=== PATIENT | female | born 2000 | race Caucasian/White ===

== ENCOUNTER 2023-11-05 16:54 | Inpatient (IN) ==
--- NOTE | 2023-11-05 17:19 | Emergency Department Note ---
Impression & Plan Heart block, Syncope, Observed seizure-like activity ED Provider Note NAME: KYLIE GALEANA AGE: 23 SEX: F : 2000 ARRIVES VIA: Ambulance INFORMANT: Patient, EMS ED PROVIDER(S): Howard Mesa DO CHIEF COMPLAINT: Syncope HPI: The patient is a 23-year-old female who presented to the emergency department for an evaluation of syncope. She was seen in our facility recently for a seizure. That episode appeared to be more classic for seizure with a postictal phase. The patient states that she was at rest and she did not feel well. Her sister presented to the emergency room with her and states that she was sitting in a chair and she passed out. There is no definite reported seizure activity. There was no nausea or vomiting. The patient does complain of a slight headache at this time but denies having any neck stiffness or trauma. The patient does not have a history of any recent tickborne illnesses. She has a family history of sudden cardiac . ROS: See above HPI for pertinent positives & negatives. A total of 10 systems reviewed and were otherwise negative. PAST MEDICAL HISTORY: See Below PAST SURGICAL HISTORY: See Below FAMILY HISTORY: See Below SOCIAL HISTORY: See Below HOME MEDICATIONS: See Below ALLERGIES: See Below VITALS: See Below PHYSICAL EXAMINATION: GENERAL: Patient is awake alert in no acute distress patient is resting comfortably and showing no signs of anxiety EYES: The conjunctivae are clear. The pupils are round and reactive. EARS, NOSE, MOUTH AND THROAT: The nose is without any evidence of any deformity. NECK: The neck is nontender and supple. RESPIRATORY: Normal respiratory effort is noted there is no evidence of wheezing rhonchi or rales CARDIOVASCULAR: Regular rate and rhythm noted there no murmurs rubs or gallops normal S1 normal S2. GASTROINTESTINAL: The abdomen is soft. Abdomen is nontender. MUSCULOSKELETAL/EXTREMITIES: There is no evidence of gross deformity full range of motion is noted in the hips and shoulders. SKIN: There is no obvious evidence of any rash. There are no petechiae, pallor or cyanosis noted. NEUROLOGIC: Patient is awake alert and oriented x3 strength is symmetric patellar reflexes are 2+ bilaterally MEDICAL DECISION MAKING: The patient is a 23-year-old female who presented to the emergency department for an evaluation after having a syncopal episode. The patient was seen in our facility this morning for a seizure. At that time her seizure did sound appropriate and the description involves a postictal phase. She returns emergency department tonight after having another episode but this sounds more like a syncopal episode. The prehospital personnel notified me that the patient had an episode of heart block as well. I reviewed the patient's rhythm strips prior to arrival. I discussed the patient's laboratory and radiographic studies with her. I also discussed the patient's condition with the on-call [facility] bonding machine operator as well as the on-call [facility] hospitalist. They have agreed to evaluate the patient for further management and disposition. The patient did have 1 episode of heart block while in the emergency department. This resolved spontaneously. The patient did have the transcutaneous pacemaker attached but it was not used during her time with me. Triage Nursing notes reviewed. Prior medical records reviewed Vital Signs: reviewed and remarkable for no significant abnormalities Differential diagnosis: Vasovagal event, dehydration, infection, hypoglycemia, electrolyte abnormalities, cardiac sources, intracerebral event, pulmonary embolism, seizure, toxicologic, neurologic, as well as other pathologies. ER treatment provided: See below Diagnostics interpreted by me: ECG: EKG was obtained in the emergency department. My interpretation is normal sinus rhythm at 80 bpm. There was no ectopy. There was no acute ST segment abnormalities noted. This was compared to a tracing from November 05, 2023 earlier this morning no changes were noted. Prehospital monitor strip was obtained and reviewed. My interpretation is sinus rhythm that shows some prolongation of the OR interval and the ultimately some dropped QRS complexes that could be consistent with a third-degree heart block. Cardiac Monitoring: An order was placed for continuous cardiac monitoring. The monitor shows a rate of 78 bpm with sinus rhythm. Laboratory studies: As stated above and show below. Imaging studies: See below. Radiographic imaging was reviewed by myself Consultation(s): I discussed this case with Dr Carrizales who was one call for cardiology I discussed this case with Dr Omalley who is on-call for the [facility] hospitalist group. Past Med/Surg History Problem List (Updated 11/05/23 @ 22:59 by Howard Mesa DO) Syncope (Acute) Heart block (Acute) High anion gap metabolic acidosis Observed seizure-like activity (Acute) Generalized seizure (Acute) New onset seizure (Acute) Social History Smoking Status: Never smoker Preferred Language: Divehi Feels Safe at Home: Yes Allergies Allergies Allergy/AdvReac Type Severity Reaction Status Date / Time No Known Allergies Allergy Unverified 11/05/23 18:48 Home Meds Home Medications Medication Instructions Recorded Confirmed No Known Home Medications 11/05/23 11/05/23 Results & Data (ED) Vital Signs Vital Signs - 24 hr 11/05/23 17:10 11/05/23 17:53 Pulse Rate 87 87 Respiratory Rate 18 Respiratory Effort / Characteristics Non-Labored Spontaneous Respiratory Depth Normal Respiratory Pattern Regular Blood Pressure 115/76 Blood Pressure Mean 89 Pulse Oximetry 100 Oxygen Delivery Method Room Air Sepsis Recent Fever Within 48 Hours No Sepsis New/Unexplained Change in Mental Status No Sepsis Action Taken by Nursing No Action Required Home Medications Current Medication List: was personally reviewed by me Laboratory Data Attestation: I reviewed the patient's lab results. 11/05/23 17:10 11/05/23 17:10 Lab Results 11/05/23 11/05/23 11/05/23 Range/Units 17:10 17:29 18:11 WBC 13.57 H (4.8-10.8) K/ul RBC 3.91 L (4.20-5.40) M/uL Hgb 10.3 L (12.0-16.0) g/dl Hct 32.9 L (37.0-47.0) % MCV 84.1 (80.0-100.0) fL MCH 26.3 (25.0-34.0) pg MCHC 31.3 L (32.0-36.0) g/dL RDW Std Deviation 46.2 (36.4-46.3) fL RDW Coeff of [place]dy 15.2 H (11.5-14.5) % Plt Count 363 (130-400) K/uL MPV 9.2 L (9.4-12.4) fL Immature Gran % (Auto) 0.3 % Neut % (Auto) 76.7 % Lymph % (Auto) 14.7 % [place] % (Auto) 7.6 % Eos % (Auto) 0.3 % Baso % (Auto) 0.4 % Neut # (Auto) 10.42 H (1.40-6.50) K/uL Lymph # (Auto) 1.99 (1.20-3.40) K/uL [place] # (Auto) 1.03 H (0.11-0.59) K/uL Eos # (Auto) 0.04 (0.00-0.50) K/uL Baso # (Auto) 0.05 (0.00-0.20) K/uL Immature Gran # (Auto) 0.04 (0.01-0.20) K/uL PT 10.9 (9.0-12.0) Seconds INR 1.0 (0.9-1.1) APTT 23 (21-31) Seconds PTT Ratio 0.9 Sodium 138 (136-145) mmol/L Potassium 3.6 (3.5-5.1) mmol/L Chloride 107 (98-107) mmol/L Carbon Dioxide 19 L (21-32) mmol/L Anion Gap 12 H (3-11) BUN 14 (6-23) mg/dl Creatinine 0.66 (0.6-1.2) mg/dl Est Cr Clr Drug Dosing 115.0 ml/min Est GFR ( Amer) 145.3 ml/min Est GFR (Non-Af Amer) 125.4 ml/min BUN/Creatinine Ratio 21.2 H (10-20) Glucose 92 (70-99(Fasting)) mg/dl Calcium 8.8 (8.6-10.3) mg/dl Magnesium 1.8 (1.7-2.4) mg/dl Total Bilirubin 0.3 (0.2-1.0) mg/dl AST 18 (13-39) U/L ALT 12 (7-52) U/L Alkaline Phosphatase 46 (34-104) U/L Troponin I High Sens < 2.3 (0-14) pg/ml Total Protein 6.7 (6.0-8.3) gm/dl Albumin 4.2 (3.4-5.0) gm/dl Globulin 2.5 (2.5-4.0) gm/dl Albumin/Globulin Ratio 1.7 (0.9-2) Procalcitonin < 0.02 (0-0.5) ng/ml TSH 1.449 (0.300-4.500) uIu/ml HCG, Qual Negative (Negative) Urine Color Yellow Urine Appearance Clear (Clear) Urine pH 6.5 (4.5-7.5) Ur Specific [place] 1.012 (1.000-1.030) Urine Protein Negative (Negative) Urine Glucose (UA) Negative (Negative) Urine Ketones Negative (Negative) Urine Blood Negative (Negative) Urine Nitrite Negative (Negative) Urine Bilirubin Negative (Negative) Urine Urobilinogen Negative (Negative) Ur Leukocyte Esterase 2+ H (Negative) Urine WBC (Auto) 11-20 H (0-5) /hpf Urine RBC (Auto) 0-2 (0-2) /hpf U Hyaline Cast (Auto) 0-2 (0-2) /lpf U Epithel Cells (Auto) 3-5 H (0-2) /hpf Urine Bacteria (Auto) None Seen (None Seen) Urine Opiates Screen Neg (Neg) Ur Methadone, Qual Neg (Neg) Urine Fentanyl Screen Neg (Neg) Urine Barbiturates Neg (Neg) Ur Phencyclidine (PCP) Neg (Neg) U Amphetamin/Meth Scrn Neg (Neg) MDMA (Ecstasy) Screen Neg (Neg) U Benzodiazepines Scrn Neg (Neg) Ur Cocaine Metabolite Neg (Neg) U Marijuana (THC) Screen Neg (Neg) Lyme Disease Screen Negative (Negative) SARS-CoV-2 (PCR) NEGATIVE (Negative) Influenza Type A (PCR) Negative (Neg) Influenza Type B (PCR) Negative (Neg) RSV (RT-PCR) Negative (Neg) Administered Medications Lactated Ringer's (Lr) 1,000 mls @ 100 mls/hr IV .Q10H YOLANDA Stop: 11/06/23 04:59 Last Admin: 11/05/23 19:09 Dose: 100 mls/hr Documented By: BÁRBARA Discontinued Medications Sodium Chloride (Nss) 1,000 mls @ 999 mls/hr IV .Q1H1M STA Stop: 11/05/23 18:05 Last Infusion: 11/05/23 18:41 Dose: Infused Documented By: Admin: 11/05/23 17:23 Dose: 999 mls/hr Documented By: PIERRE Magnesium Sulfate/Dextrose (Magnesium Sulfate / D5w) 1 gm in 100 mls @ 50 mls/hr IV Q2H YOLANDA Stop: 11/05/23 22:14 Last Infusion: 11/05/23 22:32 Dose: Infused Documented By: Admin: 11/05/23 20:21 Dose: 50 mls/hr Documented By: Infusion: 11/05/23 20:21 Dose: Infused Documented By: Admin: 11/05/23 18:37 Dose: 50 mls/hr Documented By: GRIS Levetiracetam (Levetiracetam 500 Mg/5 Ml Vial) 500 mg IV NOW STA Stop: 11/05/23 18:51 Last Admin: 11/05/23 19:07 Dose: 500 mg Documented By: BÁRBARA Potassium Chloride (Potassium Chloride Crtab 20 Meq Tabcr) 40 meq PO NOW STA Stop: 11/05/23 18:09 Last Admin: 11/05/23 18:37 Dose: 40 meq Documented By: GRIS Imaging Data Attestation: I personally reviewed and interpreted this imaging study as follows: My Impression: 1 view chest x-ray was obtained in the emergency department. My interpretation was no free air or definite infiltrate, final report below. Radiologist's Impression: Chest X-Ray 11/05/23 17:05 XR chest 1V portable HISTORY: 23 years-old Female Dysrhythmia COMPARISON: 01/22/2023 TECHNIQUE: AP view of the chest FINDINGS: The lungs are clear. Cardiac silhouette is normal in size. No pleural effusions. No pneumothorax. IMPRESSION: No acute process. ACT 112: Negative or not required by law. The above report was generated using voice recognition software. It may contain grammatical, syntax or spelling errors. Electronically signed by: Cruzito Short M.D. 11/05/2023 5:23 PM Discharge Plan Visit Data Chief Complaint: Seizure Stated Complaint: SYNCOPE ED Provider: Howard Mesa Discharge Problem: Heart block, Syncope, Observed seizure-like activity Patient Disposition: Admitted As Inpatient Discharge Instructions Interventions: ED Discharge Assessment Last Done: 11/05/23 20:15 Discharge Problem: Syncope Qualifiers: Syncope type: unspecified Qualified Code(s): R55 - Syncope and collapse
[2023-11-05] MEDS: SODIUM CHLORIDE 0.9% 1,000 ML IV STA (17:23)
--- NOTE | 2023-11-05 17:25 | XRay Report ---
XR chest 1V portable HISTORY: 23 years-old Female Dysrhythmia COMPARISON: 01/22/2023 TECHNIQUE: AP view of the chest FINDINGS: The lungs are clear. Cardiac silhouette is normal in size. No pleural effusions. No pneumothorax. IMPRESSION: No acute process. ACT 112: Negative or not required by law. The above report was generated using voice recognition software. It may contain grammatical, syntax o r spelling errors. Electronically signed by: Cruzito Short M.D. 11/05/2023 5:23 PM
[2023-11-05 17:30] LABS: Basophils # (auto) 0.05 K/uL (0.00-0.20); Basophils % (auto) 0.4 %; Eosinophils # (auto) 0.04 K/uL (0.00-0.50); Eosinophils % (auto) 0.3 %; Hematocrit (blood only) 32.9 % (37.0-47.0); Hemoglobin 10.3 g/dl (12.0-16.0); Immature Granulocytes # (auto) 0.04 K/uL (0.01-0.20); Immature Granulocytes % (auto) 0.3 %; Lymphocytes # (auto) 1.99 K/uL (1.20-3.40); Lymphocytes % (auto) 14.7 %; Mean Corpuscular Hemoglobin 26.3 pg (25.0-34.0); Mean Corpuscular Hgb Conc 31.3 g/dL (32.0-36.0); Mean Corpuscular Volume 84.1 fL (80.0-100.0); Mean Platelet Volume 9.2 fL (9.4-12.4); Monocytes # (auto) 1.03 K/uL (0.11-0.59); Monocytes % (auto) 7.6 %; Neutrophils # (auto) 10.42 K/uL (1.40-6.50); Neutrophils % (auto) 76.7 %; Platelet Count 363 K/uL (130-400); RDW Coefficient of Variation 15.2 % (11.5-14.5); RDW Standard Deviation 46.2 fL (36.4-46.3); Red Blood Count 3.91 M/uL (4.20-5.40); White Blood Count 13.57 K/ul (4.8-10.8)
[2023-11-05 17:40] LABS: Pregnancy Test, Serum Negative (Negative)
[2023-11-05 17:48] LABS: Alanine Aminotransferase 12 U/L (7-52); Albumin Globulin Ratio 1.7 (0.9-2); Albumin Level 4.2 gm/dl (3.4-5.0); Alkaline Phosphatase 46 U/L (34-104); Anion Gap 12 (3-11); Aspartate Aminotransferase 18 U/L (13-39); BUN Creatinine Ratio 21.2 (10-20); Bilirubin,Total 0.3 mg/dl (0.2-1.0); Blood Urea Nitrogen 14 mg/dl (6-23); Calcium 8.8 mg/dl (8.6-10.3); Carbon Dioxide 19 mmol/L (21-32); Chloride 107 mmol/L (98-107); Est GFR (African American) 145.3 ml/min; Est GFR (Non-African American) 125.4 ml/min; Globulin 2.5 gm/dl (2.5-4.0); Glucose 92 mg/dl (70-99(Fasting)); Magnesium 1.8 mg/dl (1.7-2.4); Potassium 3.6 mmol/L (3.5-5.1); Sodium 138 mmol/L (136-145); Total Protein 6.7 gm/dl (6.0-8.3)
[2023-11-05 17:53] LABS: Troponin I High Sensitivity < 2.3 pg/ml (0-14)
[2023-11-05 18:03] LABS: Thyroid Stimulating Hormone 1.449 uIu/ml (0.300-4.500)
[2023-11-05 18:04] LABS: Partial Thromboplastin Ratio 0.9; Partial Thromboplastin Time 23 Seconds (21-31); Prothrombin Time 10.9 Seconds (9.0-12.0)
[2023-11-05 18:13] LABS: Influenza A virus by PCR Negative (Neg); Influenza B virus by PCR Negative (Neg); RSV by PCR Negative (Neg); SARS CoV2 RNA(COVID-19) Ceph NEGATIVE (Negative)
--- NOTE | 2023-11-05 18:16 | History & Physical Report ---
Date of Service November 05, 2023 Assessment & Plan (1) Observed seizure-like activity: Plan: Admit to the PCU on telemetry and pulse oximetry Currently stable, nontoxic-appearing, without recurrent episode since arrival to the ED Patient has experienced 2 episodes which appeared to be seizure-like episodes witnessed by her sister, boyfriend, and other friends today Patient had tonic-clonic like activity, loss of consciousness, and likely postictal state Workup thus far has been essentially unremarkable negative CTA head and brain without contrast, stable EKGs, no sign of infection Spoke with cardiology regarding the episodes of dropped beats captured by EMS and route during her second ED visit, they are confident these are likely due to patient having seizure activity and do not feel at this time that seizures are cardiac in nature Patient had approximately 3 alcoholic drinks last night, denies tobacco use, vaping, recreational drug use Lyme screen is negative, no signs of meningitis, has remained afebrile After speaking with neurology will start patient on [place] milligrams IV Keppra twice daily with first dose at the time admission Will obtain MRI of the brain with seizure protocol, EEG, TTE Continue to monitor on telemetry Status post 1 L normal saline in the ED, will give LR at 100 mL/h x 1 bag overnight for ongoing hydration Cardiology and neurology consults have been placed Bilateral SCDs for DVT prophylaxis Regular diet AM CBC, CMP, mag, PT/INR (2) High anion gap metabolic acidosis: Plan: On arrival to the ED this afternoon the patient was noted to have an anion gap of 12 with bicarb of 19 Most likely due to her second seizure-like episode today dehydration Will obtain stat lactate and VBG for further evaluation Patient is stable and nontoxic-appearing at time of admission Status post 1 L normal saline on arrival, will give light IV hydration overnight with LR Continue to monitor on telemetry Plan The patient was discussed with Dr. Omalley at the time of the admission History of Present Illness Chief Complaint: Syncopal episode Primary Care Provider: [facility] Randa is a 23-year-old female with a past medical history significant for recurrent episodes of vasovagal/syncopal episodes who presented to the [facility] ED via EMS on 11/05/2023 for the second time in [facility] 12 hours this time for syncopal episode. The patient initially presented to our emergency department at approximately 0930 after her sister witnessed her having a seizure-like event while in bed. Patient's sister reported the patient was having tonic-clonic like activity and was foaming at the mouth. She remained stable while in the ED this a.m. Labs were essentially unremarkable, her UA did have 2+ leukocyte esterase and 2150 WBC but was otherwise negative. CT of the head and brain without contrast was read as negative for acute findings. The patient was discharged home after receiving 1 L NSS. Later this afternoon the patient was reportedly sitting in a chair when she reported to her sister that she was not feeling well then subsequently passed out. While in route EMS captured telemetry strip showing episodes of dropped QRS complexes. She remained stable after arrival to our ED this afternoon. Repeat labs were significant for a leukocytosis of 13 with neutrophil predo minance of 10, anion gap of 12 with bicarb of 19, COVID-19, influenza, RSV screens negative with Lyme disease screen in process. Repeat ECG obtained on ED arrival shows normal sinus rhythm without acute ST segment or T wave changes. The ED spoke with cardiology who recommended admission for further observation and telemetry monitoring. Prior to admission the patient was given 1 L NSS. Patient was sitting in bed in no acute distress at the time of the exam with her sister and boyfriend sitting bedside, history is obtained from both. They confirm the history this morning regarding the likely seizure. They state that after being discharged from the ER earlier today they walked to a friend's tailgate. The patient explains that all she did was sit in a chair and drink water as she was told that she needed to take it easy. She states that she initially felt fine then at 1 point suddenly felt as though the left side of her face was drooping. Her sister and her boyfriend and confirmed that the patient had drooping of the left side of the face and was less alert than normal. They were concerned that she was going to have another seizure so they laid her to the ground and placed her on her side. Patient had an episode of being less responsive during that time. She confirms that she had approximately 3 alcoholic drinks last night along with multiple cups of water as she has a history of vasovagal episodes if she drinks too much causing her to become sick and vomit. She states that she has also had episodes of syncope/vasovagal episodes when she has had GI bugs causing her to become dehydrated and vomit. She denies any tobacco use, vaping, or recreational drug use. Does not believe that she has had any recent tick bites or insect bites. Is not on prescription or [id number] medications, denies [id number]-babctvh supplements or workout supplements. Currently has a mild headache but otherwise feels fine. Please refer to Dr. Omalley's attestation for any changes to the treatment plan Allergies Allergy/AdvReac Type Severity Reaction Status Date / Time No Known Allergies Allergy Unverified 11/05/23 18:48 Home Medications Medication Instructions Recorded Confirmed Type No Known Home Medications 11/05/23 11/05/23 History ferrous sulfate 325 mg (65 mg 325 mg PO DAILY #30 tabs 11/06/23 Rx iron) tablet (Feosol) levetiracetam 500 mg tablet 500 mg PO BID 1 month #60 tabs 11/06/23 Rx (Keppra) sulfamethoxazole 800 1 tab PO Q12 5 days #10 tabs 11/06/23 Rx mg-trimethoprim 160 mg tablet (Bactrim DS) Past Med/Surg History Problem List (Updated 11/05/23 @ 22:59 by Howard Mesa DO) Syncope (Acute) Heart block (Acute) High anion gap metabolic acidosis Observed seizure-like activity (Acute) Generalized seizure (Acute) New onset seizure (Acute) Social History Smoking Status: Never smoker Hx Alcohol Use: Yes Alcohol type: hard liquor Hx Substance Use: No Preferred Language: Upper Sorbian Communication Ability: Effective Accounts Receivable Processor Required: No Beliefs That Will Affect Care: None Current Living Situation: Alone Current Living Situation Comment: Apartment building Other Information That Helps Us Care for You: No Feels Safe at Home: Yes Safety Concerns: Feels Safe At This Time Assistive Devices: None Physical Exam Physical Exam: Physical Exam: General: In no acute distress, stated age, well-nourished, good hygiene HEENT: Normocephalic, atraumatic, no scleral icterus, pupils around round, symmetrical, and reactive to light, moist mucus membranes, trachea midline, no thyromegaly Chest/Pulm: No respiratory distress, symmetrical chest expansion, clear breath sounds throughout Cardiac: RRR, no murmurs noted Abdomen: Negative for ascites and bruising, normoactive bowel sounds, soft, non-tender to palpation throughout Musculoskeletal: Symmetrical and without signs of acute trauma, upper and lower extremities with full ROM, no atrophy, spasticity, or flaccidity Extremities: Radial, dorsalis pedis, and posterior tibial pulses are intact and symmetrical, no edema noted in the BL LE's Skin: Warm, dry, no rashes , lesions, or scars noted Neuro: Alert and oriented to person, place, month, year, and president, no focal defects, CN II-XII tested and intact, finger to nose test negative, no tremors noted Psych: No acute distress, calm and cooperative during the exam Results & Data Results & Data Vital Signs (Past 12 Hours) Vital Signs Pulse Resp BP Pulse Ox O2 Del Method 11/05/23 17:53 87 11/05/23 17:10 87 18 115/76 100 Room Air Laboratory Results Abnormal lab results 11/05/23 11/05/23 Range/Units 17:10 18:11 WBC 13.57 H (4.8-10.8) K/ul RBC 3.91 L (4.20-5.40) M/uL Hgb 10.3 L (12.0-16.0) g/dl Hct 32.9 L (37.0-47.0) % MCHC 31.3 L (32.0-36.0) g/dL RDW Coeff of Magdy 15.2 H (11.5-14.5) % MPV 9.2 L (9.4-12.4) fL Neut # (Auto) 10.42 H (1.40-6.50) K/uL [place] # (Auto) 1.03 H (0.11-0.59) K/uL Carbon Dioxide 19 L (21-32) mmol/L Anion Gap 12 H (3-11) BUN/Creatinine Ratio 21.2 H (10-20) Ur Leukocyte Esterase 2+ H (Negative) Urine WBC (Auto) 11-20 H (0-5) /hpf U Epithel Cells (Auto) 3-5 H (0-2) /hpf Diagnostic Findings Chest X-Ray 11/05/23 17:05 XR chest 1V portable HISTORY: 23 years-old Female Dysrhythmia COMPARISON: 01/22/2023 TECHNIQUE: AP view of the chest FINDINGS: The lungs are clear. Cardiac silhouette is normal in size. No pleural effusions. No pneumothorax. IMPRESSION: No acute process. ACT 112: Negative or not required by law. The above report was generated using voice recognition software. It may contain grammatical, syntax or spelling errors. Electronically signed by: Cruzito Short M.D. 11/05/2023 5:23 PM ECG Additional Comments: Normal sinus rhythm without acute ST segment or T wave changes Code Status & VTE Plan Code Status Full code VTE Prophylaxis Plan VTE Prophylaxis will be ordered: Yes Supervising Physician Co-Signing Physician Notes I personally saw and examined the patient. I verified all hyatt points and agree with Migue Fernandez PA-C with the following exceptions and/or additions: 23 year old female presents to the ER with recurrent tonic clonic seizure episodes. Longstanding history of vasovagal syncope but no prior seizures. Seen earlier today with first seizure. Rhythm strip from ambulance with second degree type 2 heart block with maximum three dropped beats. She had both abnormal facial movements and appeared pale/blue prior to most recent seizure. Rhythmic movements of all 4 limbs. O/E HS RRR, no murmurs, Chest CTAB, Abdo SNT, CN2-> 12 intact, no extremity weakness or loss of sensation. A/P Seizure-like activity - Brain MRI, EEG, consult neurology, start [place] as discussed with neurology Intermittent type 2 HB - discussed with cardiology and suspect to be vasovagal, TTE, consult cardiology, monitor on telemetry overnight, no recurrence while in the ER Abnormal UA - no urinary symptoms to suggest need for antibiotics, await culture PG Care Time/CCT Total # of Minutes Spent Total Time Spent with Patient: Total time spent is greater than 50% in coordination of care (as documented) at patient's floor/unit and/or counseling patient: [place] [address] INT INP/OBS CARE 3/75MIN Patient Type New Medical Decision Making High Complexity Diagnoses Observed seizure-like activity R56.9 High anion gap metabolic acidosis E87.29
[2023-11-05 18:33] LABS: Appearance Urine Clear (Clear); Bacteria Urine Automated None Seen (None Seen); Bilirubin Urine Negative (Negative); Blood Urine Negative (Negative); Cast Urine Automated 0-2 /lpf (0-2); Color Urine Yellow; Glucose Urine UA Negative (Negative); Ketones Urine Negative (Negative); Leukocyte Esterase Urine 2+ (Negative); Nitrite Urine Negative (Negative); Protein Urine Negative (Negative); RBC Urine Automated 0-2 /hpf (0-2); Specific Gravity Urine 1.012 (1.000-1.030); Urobilinogen Urine Negative (Negative); pH Urine 6.5 (4.5-7.5)
[2023-11-05] MEDS: MAGNESIUM SULFATE / D5W 1 GM/100 ML BAG IV SCH (18:37)
[2023-11-05] MEDS: POTASSIUM CHLORIDE CRTAB 20 MEQ TABCR PO STA (18:37)
[2023-11-05 19:04] LABS: Base Excess VBG -2.2 mEq/L; HCO3 VBG 22 mmol/L; Oxygen Saturation VBG 66.2 %; PCO2 VBG 37 mmHg (38-50); PO2 VBG 37 mmHg; pH VBG 7.39 (7.36-7.41)
[2023-11-05] MEDS: levETIRAcetam 500 MG/5 ML VIAL IV STA (19:07)
[2023-11-05] MEDS: LACTATED RINGER'S 1,000 ML IV SCH (19:09)
[2023-11-05 19:20] LABS: Amphetamines+Metham, Urine Neg (Neg); Barbiturates, Urine Neg (Neg); Benzodiazepine, Urine Neg (Neg); Cocaine, Urine Neg (Neg); Fentanyl, Urine Neg (Neg); MDMA (Ecstacy), Urine Neg (Neg); Marijuana, Urine Neg (Neg); Methadone, Urine Neg (Neg); Opiate, Urine Neg (Neg); Phencyclidine, Urine Neg (Neg)
[2023-11-05] MEDS: GADOBUTROL 7.5ML VIAL IV ONE (23:38)
[2023-11-06 02:31] VITALS: O2SAT 98
--- NOTE | 2023-11-06 02:36 | Magnetic Resonance Report ---
Exam(s): MRI HEAD EXAM: MR Head Without Intravenous Contrast CLINICAL HISTORY: Reason for exam: two seizure episdoes today. TECHNIQUE: Magnetic resonance images of the head/brain without intravenous contrast in multiple planes. COMPARISON: Prior head CT from November 05, 2023. FINDINGS: Brain: Unremarkable. No mass. No hemorrhage. No acute infarct. The flow voids of the base of the brain are intact. Normal enhancement of the brain parenchyma. The dural venous sinuses are patent. No evidence of mesial temporal sclerosis, heterotopic sherman matter or cortical dysplasia. Ventricles: Unremarkable. No ventriculomegaly. Bones/joints: Unremarkable. No acute fracture. Sinuses: Chronic obstructive right maxillary sinusitis. Chronic ethmoid sinusitis. No acute sinusitis. Mastoid air cells: Unremarkable as visualized. No mastoid effusion. Orbits: Unremarkable as visualized. IMPRESSION: No evidence of acute intracranial pathology. Electronically signed by: Makenna Jaramillo MD 11/06/23 02:35 AM
[2023-11-06 06:49] LABS: Basophils # (auto) 0.04 K/uL (0.00-0.20); Basophils % (auto) 0.4 %; Eosinophils # (auto) 0.09 K/uL (0.00-0.50); Hematocrit (blood only) 29.8 % (37.0-47.0); Hemoglobin 9.7 g/dl (12.0-16.0); Immature Granulocytes # (auto) 0.02 K/uL (0.01-0.20); Immature Granulocytes % (auto) 0.2 %; Lymphocytes % (auto) 39.8 %; Mean Corpuscular Hemoglobin 26.9 pg (25.0-34.0); Mean Corpuscular Hgb Conc 32.6 g/dL (32.0-36.0); Mean Corpuscular Volume 82.5 fL (80.0-100.0); Mean Platelet Volume 9.3 fL (9.4-12.4); Monocytes # (auto) 0.58 K/uL (0.11-0.59); Monocytes % (auto) 6.4 %; Neutrophils # (auto) 4.72 K/uL (1.40-6.50); Neutrophils % (auto) 52.2 %; Platelet Count 267 K/uL (130-400); RDW Coefficient of Variation 15.3 % (11.5-14.5); RDW Standard Deviation 46.5 fL (36.4-46.3); Red Blood Count 3.61 M/uL (4.20-5.40); White Blood Count 9.05 K/ul (4.8-10.8)
[2023-11-06 07:09] LABS: Alanine Aminotransferase 10 U/L (7-52); Albumin Globulin Ratio 1.5 (0.9-2); Albumin Level 3.4 gm/dl (3.4-5.0); Alkaline Phosphatase 40 U/L (34-104); Anion Gap 3 (3-11); Aspartate Aminotransferase 16 U/L (13-39); BUN Creatinine Ratio 13.6 (10-20); Bilirubin,Total 0.4 mg/dl (0.2-1.0); Blood Urea Nitrogen 8 mg/dl (6-23); Calcium 8.3 mg/dl (8.6-10.3); Carbon Dioxide 25 mmol/L (21-32); Chloride 112 mmol/L (98-107); Creatinine Clr Calc Pharmacy 128.5 ml/min; Est GFR (African American) > 150.0 ml/min; Est GFR (Non-African American) 130.1 ml/min; Globulin 2.2 gm/dl (2.5-4.0); Glucose 81 mg/dl (70-99(Fasting)); Magnesium 2.3 mg/dl (1.7-2.4); Potassium 3.8 mmol/L (3.5-5.1); Sodium 140 mmol/L (136-145); Total Protein 5.6 gm/dl (6.0-8.3)
[2023-11-06 07:15] LABS: Prothrombin Time 10.8 Seconds (9.0-12.0)
[2023-11-06 07:54] VITALS: RESP 16; TEMP 98.4
--- NOTE | 2023-11-06 08:13 | Hospitalist Progress Note ---
Date of Service November 06, 2023 Assessment & Plan (1) Observed seizure-like activity: Plan: Admit to the PCU on telemetry and pulse oximetry Currently stable, nontoxic-appearing, without recurrent episode since arrival to the ED Patient has experienced 2 episodes which appeared to be seizure-like episodes witnessed by her sister, boyfriend, and other friends today Patient had tonic-clonic like activity, loss of consciousness, and likely postictal state Workup thus far has been essentially unremarkable negative CTA head and brain without contrast, stable EKGs, no sign of infection Spoke with cardiology regarding the episodes of dropped beats captured by EMS and route during her second ED visit, they are confident these are likely due to patient having seizure activity and do not feel at this time that seizures are cardiac in nature Patient had approximately 3 alcoholic drinks last night, denies tobacco use, vaping, recreational drug use Lyme screen is negative, no signs of meningitis, has remained afebrile After speaking with neurology will start patient on [place] milligrams IV Keppra twice daily with first dose at the time admission Will obtain MRI of the brain with seizure protocol, EEG, TTE Continue to monitor on telemetry Status post 1 L normal saline in the ED, will give LR at 100 mL/h x 1 bag overnight for ongoing hydration Cardiology and neurology consults have been placed Bilateral SCDs for DVT prophylaxis Regular diet AM CBC, CMP, mag, PT/INR Admission and Anticipated Discharge Date Admission Date: November 05, 2023 Results & Data Results & Data Vital Signs (Past 12 Hours) Vital Signs Temp Pulse Pulse Resp BP Pulse Ox O2 Del Method 11/06/23 07:52 36.9 C 58 L 16 93/57 L 98 Room Air 11/06/23 03:54 98/59 L 11/06/23 03:37 86/45 L 11/06/23 02:30 36.4 C L 66 15 91/51 L 98 Room Air 11/06/23 00:16 36.6 C 63 16 112/70 99 Room Air 11/05/23 22:06 76 11/05/23 20:18 83 11/05/23 20:17 36.6 C 73 16 110/72 100 Room Air
--- NOTE | 2023-11-06 08:15 | Neurology Consultation ---
Date of Consultation November 06, 2023 Assessment & Plan (1) Syncope: History of Present Illness Attending Physician: Jenny Bustamante MD History of Present Illness pt this morning feeling well. no seizures or syncopal like event. no weakness or focal deficits. wants to go home. chart reviewed. mri brain negative. admission HPI: Randa is a 23-year-old female with a past medical history significant for recurrent episodes of vasovagal/syncopal episodes who presented to the [facility] ED via EMS on 11/05/2023 for the second time in approximately 12 hours this time for syncopal episode. The patient initially presented to our emergency department at approximately 0930 after her sister witnessed her having a seizure-like event while in bed. Patient's sister reported the patient was having tonic-clonic like activity and was foaming at the mouth. She remained stable while in the ED this a.m. Labs were essentially unremarkable, her UA did have 2+ leukocyte esterase and 2150 WBC but was otherwise negative. CT of the head and brain without contrast was read as negative for acute findings. The patient was discharged home after receiving 1 L NSS. Later this afternoon the patient was reportedly sitting in a chair when she reported to her sister that she was not feeling well then subsequently passed out. While in route EMS captured telemetry strip showing episodes of dropped QRS complexes. She remained stable after arrival to our ED this afternoon. Repeat labs were significant for a leukocytosis of 13 with neutrophil predominance of 10, anion gap of 12 with bicarb of 19, COVID-19, influenza, RSV screens negative with Lyme disease screen in process. Repeat ECG obtained on ED arrival shows normal sinus rhythm without acute ST segment or T wave changes. The ED spoke with cardiology who recommended admission for further observation and telemetry monitoring. Prior to admission the patient was given 1 L NSS. Patient was sitting in bed in no acute distress at the time of the exam with her sister and boyfriend sitting bedside, history is obtained from both. They confirm the history this morning regarding the likely seizure. They state that after being discharged from the ER earlier today they walked to a friend's tailgate. The patient explains that all she did was sit in a chair and drink water as she was told that she needed to take it easy. She states that she initially felt fine then at 1 point suddenly felt as though the left side of her face was drooping. Her sister and her boyfriend and confirmed that the patient had drooping of the left side of the face and was less alert than normal. They were concerned that she was going to have another seizure so they laid her to the ground and placed her on her side. Patient had an episode of being less responsive during that time. She confirms that she had approximately 3 alcoholic drinks last night along with multiple cups of water as she has a history of vasovagal episodes if she drinks too much causing her to become sick and vomit. She states that she has also had episodes of syncope/vasovagal episodes when she has had GI bugs causing her to become dehydrated and vomit. She denies any tobacco use, vaping, or recreational drug use. Does not believe that she has had any recent tick bites or insect bites. Is not on prescription or sxfb-gqk-ltarjtt medications, denies gvio-flo-xiqkpbm supplements or workout supplements. Currently has a mild headache but otherwise feels fine. Allergies Allergy/AdvReac Type Severity Reaction Status Date / Time No Known Allergies Allergy Unverified 11/05/23 18:48 Home Medications Medication Instructions Recorded Confirmed Type No Known Home Medications 11/05/23 11/05/23 History Patient History Social History Smoking Status: Never smoker Hx Alcohol Use: Yes Alcohol type: hard liquor Hx Substance Use: No Preferred Language: Djiboutian Communication Ability: Effective Fish Peddler Required: No Beliefs That Will Affect Care: None Current Living Situation: Alone Current Living Situation Comment: Apartment building Other Information That Helps Us Care for You: No Feels Safe at Home: Yes Safety Concerns: Feels Safe At This Time Assistive Devices: None Exam (Neuro) Physical Exam: HEENT: normocephalic grossly Neuro: Mental: AOx4, fluent speech, normal comprehension, no apraxia, no L/R confusion, no neglect CN: PERRL, Full EOM, symmetric face, Motor: No abnormal movements, normal tone, 5/5 t/o bilaterally Sens: intact to touch b/l grossly Coord: intact DTR: 2+ sym b/l Impression: 23 yo female with likely convulsive syncope and secondary seizure event from alcohol, dehydration, UTI. She is now clinically stable and mri brain negative. Pt likely having syncopal event from hypotensive event/dehydration. Recommendations: no need for urgent inpt EEG as i do not feel she has epilepsy disorder and it will not change person (EEG cancelled). continue keppra for now, likely for about a month and likely can will wean off. pt can have routine f/u with one of our neurology PA's at neurology clinic. ok for discharge from neurology stand point. no alcohol consumption. avoid dehdyration close monitor for UTI no driving. call again for new question. will sign off. Chart reviewed I have spent more than 50% educating patient about potential diagnosis and neurological evaluation and coordinating care with patient's treatment team. Total time spent (including chart review and coordination of care): 45 min (this includes chart review). Results & Data Vital Signs (Past 12 Hours) Vital Signs Temp Pulse Pulse Resp BP Pulse Ox O2 Del Method 11/06/23 07:52 36.9 C 58 L 16 93/57 L 98 Room Air 11/06/23 03:54 98/59 L 11/06/23 03:37 86/45 L 11/06/23 02:30 36.4 C L 66 15 91/51 L 98 Room Air 11/06/23 00:16 36.6 C 63 16 112/70 99 Room Air 11/05/23 22:06 76 11/05/23 20:18 83 11/05/23 20:17 36.6 C 73 16 110/72 100 Room Air PG Care Time/CCT Total # of Minutes Spent Total Time Spent with Patient: Total time spent is greater than 50% in coordination of care (as documented) at patient's floor/unit and/or counseling patient: Coding Level of Care Code 05128 IN/OBS CONSULT LVL 3,45M Diagnoses Syncope R55 Syncope type: unspecified (1) Syncope Syncope type: unspecified Qualified Code(s): R55 - Syncope and collapse
[2023-11-06 08:36] VITALS: BP 105/69
[2023-11-06] MEDS: levETIRAcetam IV 500 MG in SODIUM CHLOR 0.9% MINI-B 100 ML IV SCH (08:50)
[2023-11-06 11:03] VITALS: PULSE 58
[2023-11-06] MEDS: SULFAMETHOXAZOLE/TRIMETHOPRIM DS 800/160MG TAB PO SCH (11:08)
--- NOTE | 2023-11-06 11:12 | XCELERA ---
[id number]
--- NOTE | 2023-11-06 12:20 | Electrocardiogram Report ---
Test Reason : Blood Pressure : */* mmHG Vent. Rate : 80 BPM Atrial Rate : 80 BPM P-R Int : 176 ms QRS Dur : 82 ms QT Int : 384 ms P-R-T Axes : 53 85 62 degrees QTcB Int : 442 ms Normal sinus rhythm with sinus arrhythmia Normal ECG When compared with ECG of 05-Nov-2023 09:01, (unconfirmed) No significant change was found Confirmed by Howard Carrizales ([id number]) on 11/06/2023 12:19:46 PM Referred By: REFERRED SELF Confirmed By: Howard Carrizales
--- NOTE | 2023-11-06 12:24 | Electrocardiogram Report ---
Test Reason : Blood Pressure : */* mmHG Vent. Rate : 56 BPM Atrial Rate : 56 BPM P-R Int : 188 ms QRS Dur : 84 ms QT Int : 438 ms P-R-T Axes : 26 81 67 degrees QTcB Int : 422 ms Sinus bradycardia with marked sinus arrhythmia Otherwise normal ECG When compared with ECG of 05-Nov-2023 17:05, (unconfirmed) No significant change was found Confirmed by Howard Carrizales ([id number]) on 11/06/2023 12:24:47 PM Referred By: REFERRED SELF Confirmed By: Howard Carrizales
--- NOTE | 2023-11-06 12:39 | Discharge Summary ---
Date of Service November 06, 2023 Admission HPI Per Admitting Provider Randa is a 23-year-old female with a past medical history significant for recurrent episodes of vasovagal/syncopal episodes who presented to the [facility] ED via EMS on 11/05/2023 for the second time in approximately 12 hours this time for syncopal episode. The patient initially presented to our emergency department at approximately 0930 after her sister witnessed her having a seizure-like event while in bed. Patient's sister reported the patient was having tonic-clonic like activity and was foaming at the mouth. She remained stable while in the ED this a.m. Labs were essentially unremarkable, her UA did have 2+ leukocyte esterase and 2150 WBC but was otherwise negative. CT of the head and brain without contrast was read as negative for acute findings. The patient was discharged home after receiving 1 L NSS. Later this afternoon the patient was reportedly sitting in a chair when she reported to her sister that she was not feeling well then subsequently passed out. While in route EMS captured telemetry strip showing episodes of dropped QRS complexes. She remained stable after arrival to our ED this afternoon. Repeat labs were significant for a leukocytosis of 13 with neutrophil predominance of 10, anion gap of 12 with bicarb of 19, COVID-19, influenza, RSV screens negative with Lyme disease screen in process. Repeat ECG obtained on ED arrival shows normal sinus rhythm without acute ST segment or T wave changes. The ED spoke with cardiology who recommended admission for further observation and telemetry monitoring. Prior to admission the patient was given 1 L NSS. Patient was sitting in bed in no acute distress at the time of the exam with her sister and boyfriend sitting bedside, history is obtained from both. They confirm the history this morning regarding the likely seizure. They state that after being discharged from the ER earlier today they walked to a friend's tailgate. The patient explains that all she did was sit in a chair and drink water as she was told that she needed to take it easy. She states that she initially felt fine then at 1 point suddenly felt as though the left side of her face was drooping. Her sister and her boyfriend and confirmed that the patient had drooping of the left side of the face and was less alert than normal. They were concerned that she was going to have another seizure so they laid her to the ground and placed her on her side. Patient had an episode of being less responsive during that time. She confirms that she had approximately 3 alcoholic drinks last night along with multiple cups of water as she has a history of vasovagal episodes if she drinks too much causing her to become sick and vomit. She states that she has also had episodes of syncope/vasovagal episodes when she has had GI bugs causing her to become dehydrated and vomit. She denies any tobacco use, vaping, or recreational drug use. Does not believe that she has had any recent tick bites or insect bites. Is not on prescription or wvgn-rut-holmuqt medications, denies iqcx-cck-yjkrlkx supplements or workout supplements. Currently has a mild headache but otherwise feels fine. Please refer to Dr. Omalley's attestation for any changes to the treatment plan Admission Exam Per Admitting Provider General: In no acute distress, stated age, well-nourished, good hygiene HEENT: Normocephalic, atraumatic, no scleral icterus, pupils around round, symmetrical, and reactive to light, moist mucus membranes, trachea midline, no thyromegaly Chest/Pulm: No respiratory distress, symmetrical chest expansion, clear breath sounds throughout Cardiac: RRR, no murmurs noted Abdomen: Negative for ascites and bruising, normoactive bowel sounds, soft, non- tender to palpation throughout Musculoskeletal: Symmetrical and without signs of acute trauma, upper and lower extremities with full ROM, no atrophy, spasticity, or flaccidity Extremities: Radial, dorsalis pedis, and posterior tibial pulses are intact and symmetrical, no edema noted in the BL LE's Skin: Warm, dry, no rashes , lesions, or scars noted Neuro: Alert and oriented to person, place, month, year, and president, no focal defects, CN II-XII tested and intact, finger to nose test negative, no tremors noted Psych: No acute distress, calm and cooperative during the exam Principal Diagnosis convulsive syncope Discharge Exam Constitutional WD/WN, vitals as above Eyes PERRL, conjunctivae normal, anicteric sclerae ENMT external ear and nose normal, oropharynx normal Respiratory normal respiratory effort, lungs clear to auscultation Cardiovascular RRR, no murmur, no edema Neurologic patellar DTR's 2+ bilat, sensation intact and PERRL, EOMI, accommodation nl, no face palsy, no dysarthria Discharge Data Allergies Allergy/AdvReac Type Severity Reaction Status Date / Time No Known Allergies Allergy Unverified 11/05/23 18:48 Consultations 11/05/23 18:05 ED Decision to Admit Stat 11/05/23 18:41 Consult Cardiology Routine 11/05/23 20:20 Consult Neurology Routine Ordered Studies 11/05/23 18:44 CT Head Negative MRI Brain [MR brain seizure wo/w con] Urgent : negative ECHO (11/05) EF 55-60% Hospital Course (1) Observed seizure-like activity: resolved. no further episodes while in pt. received Keppra IV 500mg. evaluated by Neuro, MRI and CT , Echo were normal. Pt d/c home with Keppra 500mg PO to continue for an month, adv to follow up at neuro clinic in next few weeks. advised no driving, drinking alcohol. To keep well hydrated. Plan She was found to have low Hb 9.7 he we started on oral iron tablets to continue ant follow up with her PCP she was also found to have + urine test in the setting of seizure like activity - we have started her on a course of PO Bactrim DS 5days , advise to complete the course. Total Time Total Time Spent Total Time Spent (In Minutes): as per the attending entry Discharge Plan Discharge Items Patient Disposition: Home - Self-Care Reason For Visit: SYNCOPE EPSISODE Discharge Diagnosis: Convulsive Syncope Activity: Resume your previous activity Non-emergency contact: Primary Care Provider Call non-emergency contact if: you have any medication questions and your symptoms worsen Follow-up/Referrals: [place] [Primary Care Provider] - Diet: Regular Addtl Attending Provider Instructions: You had convulsion seizure. Seizure happened likely due to alcohol use, dehydration and UTI. Your brain MRI came back normal. You were evaluated by neurology and there is no concern of epileptic seizure. You should follow up in neurology clinic. You will continue the seizure medication Keppra and the neurologist plans to wean it off in one month. You should not drive until evaluated by the neurologist in the office. You should not drink any alcohol until cleared by the neurologist. You should avoid getting dehydrated. You are also anemic. You should take one iron tablet daily and have your primary care physician recheck blood counts in 1 month. You also likely have a UTI. A prescription of antibiotic is sent to the pharmacy. You should follow up with your primary care in one week. Pending Studies at Discharge: No Stand-Alone Forms: My [facility], Smoking Cessation Medications and DC Order Prescriptions: New sulfamethoxazole-trimethoprim [Bactrim DS] 800-160 mg Tablet 1 tab PO Q12 5 Days Qty: 10 0RF levetiracetam [Keppra] 500 mg tablet 500 mg PO BID 30 Days Qty: 60 0RF ferrous sulfate [Feosol] 325 mg (65 mg iron) tablet 325 mg PO DAILY Qty: 30 0RF No Action No Known Home Medications Discharge Orders: Discharge Order (Routine); Ordered 11/06/23 Ordered By: Jenny Bustamante Admission Data Admit Date/Time: 11/05/23 18:40 Attending Provider: Jenny Bustamante Admit Provider: Percy Omalley Primary Care Provider: [facility] Other Providers: Percy Omalley; Howard Carrizales; Deonte Carlson Other Interventions: Discharge Summary Assessment (RN) Last Done: 11/06/23 11:02 Supervising Physician Co-Signing Physician Notes I personally saw and examined the patient. I verified all hyatt points and agree with Migue Fernandez PA-C with the following exceptions and/or additions: HPI 23 year old female presents to the ER with recurrent tonic clonic seizure episodes. Longstanding history of vasovagal syncope but no prior seizures. Seen earlier today with first seizure. Rhythm strip from ambulance with second degree type 2 heart block with maximum three dropped beats. She had both abnormal facial movements and appeared pale/blue prior to most recent seizure. Rhythmic m ovements of all [address] head and brain MRI normal. No abnormality on Tele. Convulsive seizure - In ED started keppra. Consulted neurology - seizure likely from alcohol intake, dehydration and UTI. No need for EEG. To continue keppra and will wean in a month. No driving. No alcohol drinking. Stay hydrated. f/u with neuro in clinic. Anemia - start iron supplementation and will need follow up labs. Brief episode of ventricular standstill - evaluated by cardiology - likely vagal in origin. Does have history of vasovagal syncope.
--- NOTE | 2023-11-06 13:15 | Cardiology Consultation ---
Date of Consultation November 06, 2023 Assessment & Plan (1) Syncope: -Likely secondary to her seizure disorder -Brief episodes of intermittent ventricular standstill most likely vagal in origin. -She does carry history of vasovagal syncope. -No further cardiac workup necessary at this time. (2) New onset seizure: -Management per neurology. History of Present Illness Attending Physician: Jenny Bustamante MD History of Present Illness The patient is a 23-year-old female admitted yesterday after a seizure episode and presyncope. This consultation was ordered to assist in her cardiac management. Of note, the patient was not cooperative with my interview. Most of the history is obtained from the chart review. The patient was in her usual state of health until yesterday morning when she had a witnessed seizure at approximately 9:30 AM. She was postictal following the event and taken to the emergency room by her sister. Workup was unremarkable including laboratories and a head CT. When she returned home, she walked to a tailgate with her sister and boyfriend. She was sitting in a chair and claimed that she was "not feeling well." She was then put on the ground by her friends as they were concerned she would suffer another seizure. She became less responsive, however, never experienced syncope. On transit to the emergency room in the ambulance, she had 2 episodes of ventricular standstill. The first included 2 unanswered P waves, the second included 3 unanswered P waves. While in the emergency room, she demonstrated ventricular standstill with 7 unanswered P waves. The patient carries a history of vasovagal syncope. Her symptoms typically occur after drinking alcohol, when dehydrated, and if she has any gastrointestinal issues. Of note, she did have several alcoholic beverages on the evening prior to presentation. Currently, the patient is resting comfortably in bed. Past medical and surgical history 1. 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 Hails from [place], [place] No tobacco Social alcohol Family history Unobtainable due to patient's lack of cooperation Review of systems Unobtainable due to patient's lack of cooperation Allergies Allergy/AdvReac Type Severity Reaction Status Date / Time No Known Allergies Allergy Unverified 11/05/23 18:48 Home Medications Medication Instructions Recorded Confirmed Type No Known Home Medications 11/05/23 11/05/23 History ferrous sulfate 325 mg (65 mg 325 mg PO DAILY #30 tabs 11/06/23 Rx iron) tablet (Feosol) levetiracetam 500 mg tablet 500 mg PO BID 1 month #60 tabs 11/06/23 Rx (Keppra) sulfamethoxazole 800 1 tab PO Q12 5 days #10 tabs 11/06/23 Rx mg-trimethoprim 160 mg tablet (Bactrim DS) Patient History Social History Smoking Status: Never smoker Hx Alcohol Use: Yes Alcohol type: hard liquor Hx Substance Use: No Preferred Language: Egyptian Communication Ability: Effective Copyman Required: No Beliefs That Will Affect Care: None Current Living Situation: Alone Current Living Situation Comment: Apartment building Feels Safe at Home: Yes Assistive Devices: None Physical Exam Physical Exam: The patient is resting comfortably in bed in no acute distress. HEENT exam is negative. Neck is supple with full carotid upstrokes. No bruits. Cardiovascular exam reveals a regular rhythm with a normal S1-S2. No obvious murmurs. Lungs are clear without rales, rhonchi or wheezes. Abdomen is soft. Extremities note no edema. Results & Data Vital Signs (Past 12 Hours) Vital Signs Temp Pulse Pulse Resp BP Pulse Ox O2 Del Method 11/06/23 11:02 36.9 C 58 L 16 105/69 98 11/06/23 10:55 54 L 11/06/23 08:36 105/69 11/06/23 07:52 36.9 C 58 L 16 93/57 L 98 Room Air 11/06/23 03:54 98/59 L 11/06/23 03:37 86/45 L 11/06/23 02:30 36.4 C L 66 15 91/51 L 98 Room Air Laboratory Results Echocardiogram notes normal left ventricular systolic function without valvular pathology. EKG notes sinus bradycardia with a sinus arrhythmia. CBC notes hemoglobin 9.7, medic at 29.2, white count 9.1, and a platelet count of 267,000. Electrolytes noted sodium of 140, potassium 3.8, chloride 112, bicarb 25, BUN 8, creatinine 0.59, and a glucose of 81. Toxicology screen is negative. Lyme titer is negative. TSH is negative. test is negative. Brain MRI is normal. Chest x-ray shows no acute disease. PG Care Time/CCT Total # of Minutes Spent Total Time Spent with Patient: Total time spent is greater than 50% in coordination of care (as documented) at patient's floor/unit and/or counseling patient: Coding Level of Care Code 15283 IN/OBS CONSULT LVL 4,60M Diagnoses Syncope R55 Syncope type: unspecified New onset seizure R56.9 (1) Syncope Syncope type: unspecified Qualified Code(s): R55 - Syncope and collapse
== END 2023-11-06 11:27 | disposition home or self-care (01) | DRG 101 ==
LOC: ED 16:54 → 2S 18:40 → SUATTDRO 18:40 → 2S 20:15